=== PATIENT | female | born 1965 | race Caucasian/White ===

== ENCOUNTER 2016-11-12 11:00 | Day surgery (SDC) | payer BC ==
[~2016-11-12 11:00] MED LIST: MEGE20TA PO; THYR60TA PO
[2016-11-12] MEDS ORDERED: FENTANYL PF 250 MCG/5ML ONE (12:47)
[2016-11-12] MEDS ORDERED: HYDROmorphone 1 MG/ML, 1ML ONE (12:47)
[2016-11-12] MEDS ORDERED: ROCURONIUM 10 MG/ML ONE (12:52)
[2016-11-12] MEDS ORDERED: DEXAMETHASONE 4 MG/ML, 1ML ONE (12:52)
[2016-11-12] MEDS ORDERED: CEFAZOLIN 1,000 MG ONE (12:52)
[2016-11-12] MEDS ORDERED: NEOSTIGMINE 1 MG/ML, 10ML ONE (12:52)
[2016-11-12] MEDS ORDERED: PROPOFOL 10 MG/ML, 20ML ONE (12:52)
[2016-11-12] MEDS ORDERED: METOCLOPRAMIDE 5 MG/ML, 2ML ONE (12:52)
[2016-11-12] MEDS ORDERED: ONDANSETRON 2MG/ML, 2ML ONE (12:52)
[2016-11-12] MEDS ORDERED: GLYCOPYRROLATE 0.2MG/1ML ONE (12:52)
[2016-11-12] MEDS ORDERED: BUPIVACAINE/PF-EPI 0.25% 1:200K ONE (14:48)
[2016-11-15 14:17] LABS: HCG UR OBC PASS
== END 2016-11-12 19:25 ==
LOC: OUT 11:00
PROVIDERS: ATTEND Specialist
DX: C54.1 Malignant neoplasm of endometrium (principal); N85.00 Endometrial hyperplasia, unspecified; E03.9 Hypothyroidism, unspecified; Z90.49 Acquired absence of other specified parts of digestive tract; Z98.890 Other specified postprocedural states; Z87.39 Personal history of other diseases of the musculoskeletal system and connective tissue
CPT/HCPCS: 36415; 58571; 81025; 86850; 86900; 86920; 88305; 88307; 88331; J0690; J1100; J1170; J1885; J2405; J2704; J2710; J2765; J3010; 86923; J3490; J7120